=== PATIENT | female | born 1985 | race American Indian/Alaskan Native ===

== ENCOUNTER 2017-10-28 08:30 | Emergency (ER) | payer OTHER ==
[2017-10-28 09:02] VITALS: BP 107/82
[2017-10-28] MEDS ORDERED: MOTRIN PO ONE (10:26)
--- NOTE | 2017-10-28 10:31 | Emergency Department Report ---
ED Lower Extremity HPI - General Chief Complaint: Pain General Stated Complaint: ANKLE PAIN Time Seen by Provider: 10/28/17 10:13 Source: patient Mode of arrival: Wheelchair Limitations: Physical Limitation - History of Present Illness Initial Comments: Ms palacios is a 32 year-old woman with hx of autoimmune hepatitis who presents with right ankle pain. Onset of pain yesterday at work. Went home and soaked her ankle. Often gets joint pains, resolves with rest and soaking. Woke up this morning and her right ankle was more painful. Now unable to walk, however did manage to ambulate to car and into ED. Now in wheelchair. denies any injury. Was just sore yesterday. No calf pain. no shortness of breath. On budesonide (? ) for AIH. MD Complaint: ankle injury -: Sudden Type of Injury: unknown Place: work Severity: severe Improves With: immobilization Worsens With: weight bearing, movement, palpation Associated Symptoms: swelling, unable to bear weight. denies: snap/pop sensation, numbness, tingling - Related Data Previous Rx's Medication Instructions Recorded Last Taken Type Acetaminophen/Codeine [Tylenol #3] 1 tab PO Q6H PRN #20 tab 08/26/15 Unknown Rx Amoxicillin [Trimox CAP] 500 mg PO Q8H #30 capsule 08/26/15 Unknown Rx Ibuprofen [Motrin] 600 mg PO Q8H PRN #40 tablet 08/26/15 Unknown Rx Prednisone [predniSONE 10 mg 10 mg PO .TAPER #1 tab.ds.pk 08/26/15 Unknown Rx (6-Day Pack, 21 Tabs)] Allergies Allergy/AdvReac Type Severity Reaction Status Date / Time peanut Allergy Hives Verified 08/26/15 01:00 ED Review of Systems ROS: Stated complaint: ANKLE PAIN Other details as noted in HPI Comment: All other systems reviewed and negative ED Past Medical Hx - Past Medical History Previous Medical History?: Yes Hx Hypertension: No Hx CVA: No Hx Heart Attack/AMI: No Hx Congestive Heart Failure: No Hx Diabetes: No Hx Deep Vein Thrombosis: No Hx Pulmonary Embolism: No Hx GERD: No Hx Liver Disease: Yes (autoimmune hep) Hx Renal Disease: No Hx Sickle Cell Disease: No Hx Arthritis: No Hx Headaches / Migraines: No Hx Seizures: No Hx Kidney Stones: No Hx Psychiatric Treatment: No Hx Asthma: No Hx COPD: No Hx Tuberculosis: No Hx Dementia: No Hx HIV: No - Surgical History Past Surgical History?: Yes Hx Coronary Stent: No Hx Open Heart Surgery: No Hx Pacemaker: No Hx Internal Defibrillator: No Hx Cholecystectomy: No Hx Appendectomy: No Hx Breast Surgery: No Additional Surgical History: , liver biopsy - Social History Smoking Status: Former Smoker Substance Use Type: None - Medications Home Medications: Home Medications Medication Instructions Recorded Confirmed Last Taken Type Acetaminophen/Codeine [Tylenol #3] 1 tab PO Q6H PRN #20 tab 08/26/15 Unknown Rx Amoxicillin [Trimox CAP] 500 mg PO Q8H #30 capsule 08/26/15 Unknown Rx Ibuprofen [Motrin] 600 mg PO Q8H PRN #40 tablet 08/26/15 Unknown Rx Prednisone [predniSONE 10 mg 10 mg PO .TAPER #1 tab.ds.pk 08/26/15 Unknown Rx (6-Day Pack, 21 Tabs)] ED Physical Exam - General Limitations: Physical Limitation General appearance: alert, in no apparent distress - Head Head exam: Present: atraumatic, normocephalic - Eye Eye exam: Present: normal appearance - Cardiovascular Cardiovascular Exam: Present: regular rate, normal rhythm, other (2+ DP pulses bilaterally) - Extremities Exam Extremities exam: Present: other (R ankle tender with ROM. Tenderness over medial and lateral malleoli. Bruising medial foot. Tenderness to soft tissue medial lateral and anterior R ankle. Motor and sensory intact. Brisk cap refill in all digits. No calf swelling, no calf ttp. No calf pain with dorsiflexion of foot. No joint effusion. no erythema, no swelling. ) ED Course Vital Signs 10/28/17 08:46 Temperature 98.7 F Pulse Rate 88 Respiratory 16 Rate Blood Pressure 107/82 O2 Sat by Pulse 99 Oximetry ED Lower Extremity MDM - Radiology Data Radiology results: report reviewed, image reviewed Right ankle: Trauma, pain. There is mild swelling below the lateral malleolus laterally and over the proximal foot dorsally. There is no fracture and no displacement identified. The bones are well-mineralized. Impression: Soft tissue injury. - Medical Decision Making Ms palacios is a 32 year-old woman with hx of AIH who presents with right ankle pain. no reported injury. Exam with bruising, soft tissue and bony ttp. no calf ttp, negative homans sign. no evidence of DVT, joint effusion/erythema concerning for septic joint or cellulitis. NV intact. has bruising. I suspect this is ankle sprain. due to bony ttp and unable to bear weight, ankle films ordered and are unremarkable. Given ibuprofen PO. Xander wrap, crutches. Given care instructions, return precautions. Safe for DC to home. Critical care attestation.: If time is entered above; I have spent that time in minutes in the direct care of this critically ill patient, excluding procedure time. ED Disposition Clinical Impression: Ankle sprain Qualifiers: Encounter type: initial encounter Involved ligament of ankle: unspecified ligament Laterality: right Qualified Code(s): S93.401A - Sprain of unspecified ligament of right ankle, initial encounter Disposition: DC-01 TO HOME OR SELFCARE Is pt being admited?: No Condition: Stable Instructions: Ankle Sprain (ED), Ankle Exercises (GEN) Referrals: PRIMARY CARE, [Primary Care Provider] - 3-5 Days Forms: Work/School Release Form(ED)
--- NOTE | 2017-10-28 11:59 | XRay Report ---
Right ankle: Trauma, pain. There is mild swelling below the lateral malleolus laterally and over the proximal foot dorsally. There is no fracture and no displacement identified. The bones are well-mineralized. Impression: Soft tissue injury.
== END 2017-10-28 12:40 | disposition home or self-care (01) ==
LOC: ED 08:30
DX: S93.401A Sprain of unspecified ligament of right ankle, initial encounter (principal); Z91.010 Allergy to peanuts; Z87.891 Personal history of nicotine dependence; X58.XXXA Exposure to other specified factors, initial encounter; Y93.89 Activity, other specified; Y92.89 Other specified places as the place of occurrence of the external cause; Y99.8 Other external cause status
CPT/HCPCS: 99283

== ENCOUNTER 2019-02-06 12:34 | Emergency (ER) | payer MEDICAID, OTHER ==
[2019-02-06 12:47] VITALS: BP 149/93
--- NOTE | 2019-02-06 12:50 | Event Note ---
ED Screening Note Date of service: 02/06/19 Time: 12:47 ED Screening Note: This is a 34 y.o. F. that presents to the ER with pelvic pain, vaginal discharge & discomfort for 3 days. This initial assessment/diagnostic orders/clinical plan/treatment(s) is/are subject to change based on patients health status, clinical progression and re- assessment by fellow clinical providers in the ED. Further treatment and workup at subsequent clinical providers discretion. Patient/guardian urged not to elope from the ED as their condition may be serious if not clinically assessed and managed. Initial orders include: Pelvic exam Labs
[2019-02-06 13:23] LABS: Bilirubin,Urine NEG (Negative); Blood,Urine SM (Negative); Color,Urine Yellow (Yellow); Protein,Urine <15 mg/dL mg/dL (Negative); Urobilinogen,Urine < 2.0 mg/dL (<2.0); WBC,Urine < 1.0 /HPF (0.0-6.0)
[2019-02-06 13:38] LABS: HCG Qualitative,Urine Negative (Negative)
--- NOTE | 2019-02-06 13:58 | Emergency Department Report ---
HPI - General Chief Complaint: Urogenital-Female Time Seen by Provider: 02/06/19 12:46 - HPI HPI: Room 37 The patient is a 34-year-old female presenting with a chief complaint of vaginal discharge and vaginal burning. The patient states she's had white vaginal discharge for several weeks. The patient states the past 2 days she has burning in the vagina and dysuria. Patient denies hematuria or fever. Patient denies any new genital rashes Location: [See above] Duration: [See above] Quality: [See above] Severity: [See above] Timing: [See above] Context: [See above] Modifying factors: [See above] Associated signs and symptoms: [see above] ED Past Medical Hx - Past Medical History Previous Medical History?: Yes Hx Liver Disease: Yes (autoimmune hep) - Surgical History Past Surgical History?: Yes Additional Surgical History: , liver biopsy - Family History Family history: no significant - Social History Smoking Status: Current Every Day Smoker (1/7 pack-a-day) Substance Use Type: None (denies illicit drug use), Alcohol (occasion) - Medications Home Medications: Home Medications Medication Instructions Recorded Confirmed Last Taken Type Acetaminophen/Codeine [Tylenol #3] 1 tab PO Q6H PRN #20 tab 08/26/15 Unknown Rx Amoxicillin [Trimox CAP] 500 mg PO Q8H #30 capsule 08/26/15 Unknown Rx Ibuprofen [Motrin] 600 mg PO Q8H PRN #40 tablet 08/26/15 Unknown Rx Prednisone [predniSONE 10 mg 10 mg PO .TAPER #1 tab.ds.pk 08/26/15 Unknown Rx (6-Day Pack, 21 Tabs)] metroNIDAZOLE [Flagyl] 500 mg PO Q12HR #14 tab 02/06/19 Unknown Rx ED Review of Systems ROS: Stated complaint: VAGINAL ISSUE Other details as noted in HPI Constitutional: denies: fever Eyes: denies: eye pain ENT: denies: throat pain Respiratory: no symptoms reported Cardiovascular: denies: chest pain Endocrine: no symptoms reported Gastrointestinal: denies: abdominal pain Genitourinary: dysuria, discharge. denies: hematuria Neurological: denies: headache Physical Exam - Physical Exam Vital Signs: Vital Signs 02/06/19 12:42 Temperature 98.6 F Pulse Rate 82 Respiratory 17 Rate Blood Pressure 149/93 O2 Sat by Pulse 98 Oximetry Physical Exam: GENERAL: The patient is well-developed well-nourished female sitting on stretcher not appearing to be in acute distress. [] HEENT: Normocephalic. Atraumatic. Extraocular motions are intact. Patient has moist mucous membranes. NECK: Supple. Trachea midline CHEST/LUNGS: Clear to auscultation. There is no respiratory distress noted. HEART/CARDIOVASCULAR: Regular. There is no tachycardia. There is no gallop rub or murmur. ABDOMEN: Abdomen is soft, nontender. Patient has normal bowel sounds. There is no abdominal distention. SKIN: There is no rash. There is no edema. There is no diaphoresis. NEURO: The patient is awake, alert, and oriented. The patient is cooperative. The patient has no focal neurologic deficits. The patient has normal speech MUSCULOSKELETAL: There is no evidence of acute injury. PELVIC: White vaginal discharge present ED Course Vital Signs 02/06/19 12:42 Temperature 98.6 F Pulse Rate 82 Respiratory 17 Rate Blood Pressure 149/93 O2 Sat by Pulse 98 Oximetry ED Medical Decision Making - Lab Data Wet prep-greater than 20% clue cells. No yeast. No Trichomonas - Differential Diagnosis bacterial vaginosis, chlamydia, gonorrhea, Trichomonas, vaginal candidiasis Critical care attestation.: If time is entered above; I have spent that time in minutes in the direct care of this critically ill patient, excluding procedure time. ED Disposition Clinical Impression: Bacterial vaginosis Disposition: DC-01 TO HOME OR SELFCARE Is pt being admited?: No Does the pt Need Aspirin: No Condition: Stable Instructions: Bacterial Vaginosis (ED) Additional Instructions: Return to the emergency department should you develop worsening symptoms, inability to tolerate food or liquids, high fever or any other concerns Prescriptions: metroNIDAZOLE [Flagyl] 500 mg PO Q12HR #14 tab Referrals: IRINA CUELLAR MD [Staff Physician] - 3-5 Days Forms: STI Treatment and Prevention Time of Disposition: 14:39
[2019-02-06] MEDS ORDERED: ROCEPHIN IM ONE (14:08)
[2019-02-06] MEDS ORDERED: XYLOCAINE 1% MPF 5 mL INFILTRATI ONE (14:08)
[2019-02-06] MEDS ORDERED: ZITHROMAX PO ONE (14:08)
== END 2019-02-06 15:27 | disposition home or self-care (01) ==
LOC: ED 12:34
DX: N76.0 Acute vaginitis (principal); B96.89 Other specified bacterial agents as the cause of diseases classified elsewhere; F17.200 Nicotine dependence, unspecified, uncomplicated; Z98.890 Other specified postprocedural states; Z91.010 Allergy to peanuts; Z79.899 Other long term (current) drug therapy
CPT/HCPCS: 81001; 81025; 87210; 87591; 96372; 99284; J0696